=== PATIENT | female | born 1995 | race Caucasian/White ===

== ENCOUNTER 2017-11-26 18:37 | Emergency (ER) | payer OTHER ==
[2017-11-26 18:50] VITALS: BMI 35.4
[2017-11-26 19:43] LABS: BILIRUBIN,URINE NEGATIVE (NEGATIVE); BLOOD/HEMOGLOBIN,URINE NEGATIVE (NEGATIVE); GLUCOSE, URINE NEGATIVE (NEGATIVE); KETONES,URINE 3+ (NEGATIVE); LEUKOCYTE ESTERASE ,URINE NEGATIVE (NEGATIVE); NITRITES,URINE NEGATIVE (NEGATIVE); PROTEIN,URINE 1+ (NEGATIVE); UROBILINOGEN,URINE NORMAL (NORMAL)
[2017-11-26 19:44] LABS: APPEARANCE,URINE HAZY (CLEAR); COLOR,URINE YELLOW (YELLOW)
[2017-11-26 19:49] LABS: AMORPHOUS SEDIMENT,UR 2+ /HPF (NEGATIVE); BACTERIA,URINE 1+ /HPF (NEGATIVE); HYALINE CASTS, URINE RARE /LPF (NEGATIVE); RBC,URINE NONE SEEN /HPF (NONE SEEN); SQUAMOUS EPITHELIAL CELL,UR MANY /HPF (NEGATIVE)
[2017-11-26 19:59] VITALS: BP 109/64
--- NOTE | 2017-11-27 05:17 | DR.GENAD ---
HPI - Complaint/Symptoms Chief Complaint:: Pt came in with guard from [facility]. Guard states that the pt is 36 weeks and needs medical clearance prior to being housed in their [facility]. Pt denies any discharge, bleeding or pain. Pt uses [facility]. - Source History Provided: Patient - Mode of Arrival Mode of Arrival: Ambulatory - Timing Onset of Chief Complaint: 11/26/17 PMH - PMH Past Medical History: Yes Past Medical History: Hypothyroidism Past Surgical History: Yes Surgical History: Tonsillectomy Past Surgical History Comment: Sinus surgery - Family History History of Family Medical Conditions: Yes Family Medical History: Coronary Artery Disease - Social History Does patient currently use any type of tobacco product: Yes Have you used tobacco products in the last 12 months: Yes Type of Tobacco Use: Cigarettes Does any household member use tobacco: No Alcohol Use: None Do you use any recreational Drugs:: No Lives With: Other Lives Where: [facility] - infectious screening In the last 2 months have you had wt loss of >10#?: NO Have you had fever, night sweats or hemotysis?: No Have you traveled outside the country in the last 6 months?: No Isolation: Standard PE - Vital Signs Vitals: Temperature 98.1 F Pulse Rate [Left Brachial] 103 Pulse Rate 119 Respiratory Rate 18 Blood Pressure [Left Arm] 109/64 Blood Pressure 163/93 O2 Sat by Pulse Oximetry 98 ROR - Labs Reviewed Laboratory: Specimen Type Clean catch urine 11/26/17 18:55 Urine Color Yellow (YELLOW) 11/26/17 18:55 Urine Appearance Hazy (CLEAR) 11/26/17 18:55 Urine pH 6.0 (5.0 - 8.0) 11/26/17 18:55 Ur Specific [place] 1.010 (1.000-1.030) 11/26/17 18:55 Urine Protein 1+ (NEGATIVE) 11/26/17 18:55 Urine Glucose (UA) Negative (NEGATIVE) 11/26/17 18:55 Urine Ketones 3+ (NEGATIVE) 11/26/17 18:55 Urine Occult Blood Negative (NEGATIVE) 11/26/17 18:55 Urine Nitrite Negative (NEGATIVE) 11/26/17 18:55 Urine Bilirubin Negative (NEGATIVE) 11/26/17 18:55 Urine Urobilinogen Normal (NORMAL) 11/26/17 18:55 Ur Leukocyte Esterase Negative (NEGATIVE) 11/26/17 18:55 Urine RBC None seen /HPF (NONE SEEN) 11/26/17 18:55 Urine WBC 0-2 /HPF (NONE SEEN) 11/26/17 18:55 Ur Squamous Epith Cells Many /HPF (NEGATIVE) 11/26/17 18:55 Amorphous Sediment 2+ /HPF (NEGATIVE) 11/26/17 18:55 Urine Bacteria 1+ /HPF (NEGATIVE) 11/26/17 18:55 Hyaline Casts Rare /LPF (NEGATIVE) 11/26/17 18:55 Ur Culture Indicated? No/not indicated 11/26/17 18:55 - Discharge Plan Disposition: D/C with law/court enforcement Condition: Stable - Follow ups/Referrals Follow ups/Referrals: NFD,None [Primary Care Provider] - 3 days - Instructions Instructions: Third Trimester of , [id number], Medical Screening Exam Additional Instructions: FOLLOW UP WITH YOUR OB DOCTOR IF NEEDED.
== END 2017-11-26 20:02 ==
LOC: ER 18:50
DX: Z00.00 Encounter for general adult medical examination without abnormal findings (principal); Z3A.36 36 weeks gestation of pregnancy
CPT/HCPCS: 81001; 99284